=== PATIENT | female | born 2000 ===

== ENCOUNTER 2021-05-09 09:56 | Emergency (ER) | payer OTHER ==
[~2021-05-09] VITALS: Ht 170.2 cm; Wt 68.0 kg
[2021-05-09] MEDS ORDERED: ALEVE220 M1 PO (16:21)
== END 2021-05-09 16:26 | disposition home or self-care (01) ==
LOC: EMR PED 09:56 → ER 09:56
DX: N93.8 Other specified abnormal uterine and vaginal bleeding (principal); J11.1 Influenza due to unidentified influenza virus with other respiratory manifestations; Z20.822 Contact with and (suspected) exposure to COVID-19

== ENCOUNTER 2021-11-28 15:39 | Outpatient (CLI) | payer OTHER ==
[~2021-11-28 15:39] MED LIST: ALEVE220 M1 PO
== END 2021-11-28 16:59 | disposition home or self-care (01) ==
LOC: PRENATAL 15:39
PROVIDERS: ATTEND Obstetrics & Gynecology Maternal & Fetal Medicine
DX: O35.0XX0 Maternal care for (suspected) central nervous system malformation in fetus, not applicable or unspecified (principal); O35.3XX0 Maternal care for (suspected) damage to fetus from viral disease in mother, not applicable or unspecified; O09.219 Supervision of pregnancy with history of pre-term labor, unspecified trimester; O34.219 Maternal care for unspecified type scar from previous cesarean delivery

== ENCOUNTER 2022-02-21 08:53 | Outpatient (CLI) | payer OTHER | END 2022-02-21 09:55 | disposition home or self-care (01) | LOC: PRENATAL 08:53 | PROVIDERS: ATTEND Obstetrics & Gynecology Maternal & Fetal Medicine | DX: O26.849 Uterine size-date discrepancy, unspecified trimester (principal); O09.529 Supervision of elderly multigravida, unspecified trimester; O34.40 Maternal care for other abnormalities of cervix, unspecified trimester; Z3A.32 32 weeks gestation of pregnancy ==